=== PATIENT | male | born 1995 | race African-American/Black ===

== ENCOUNTER 2020-12-08 01:34 | Emergency (ER) | payer SELFPAY ==
[~2020-12-08] VITALS: Ht 175.3 cm; Wt 66.0 kg
[2020-12-08 01:43] VITALS: BP 108/63
--- NOTE | 2020-12-08 01:45 | NUR ---
BIBA for ETOH. Per EMS, patient was found by security passed out in the [facility]. Patient had an empty bottle (pint) of henessey. Patient is arousable. Respirations even and unlabored.
== END 2020-12-08 06:25 | disposition home or self-care (01) ==
LOC: ED 06:13
DX: F10.120 Alcohol abuse with intoxication, uncomplicated (principal); Y90.0 Blood alcohol level of less than 20 mg/100 ml
CPT/HCPCS: 99283